=== PATIENT | male | born 1960 | race Caucasian/White ===

== ENCOUNTER 2021-09-05 10:37 | Day surgery (SDC) | payer OTHER ==
[~2021-09-05] VITALS: Ht 195.6 cm; Wt 150.9 kg
[2021-09-05] MEDS ORDERED: VICT18IN SC (11:04)
[2021-09-05] MEDS ORDERED: ATOR1TAB21 PO (11:04)
[2021-09-05] MEDS ORDERED: ADV250INH INH (11:04)
[2021-09-05] MEDS ORDERED: JARD1TAB3 PO (11:04)
[2021-09-05] MEDS ORDERED: ELIQ5TAB PO (11:04)
[2021-09-05] MEDS ORDERED: GLIM4TAB5 PO (11:04)
[2021-09-05] MEDS ORDERED: CARD60TA3 PO (11:04)
[2021-09-05] MEDS ORDERED: TRIA37.577 PO (11:04)
[2021-09-05] MEDS ORDERED: FLON1SPR NARES (11:04)
[2021-09-05] MEDS ORDERED: METF-839 PO (11:04)
[2021-09-05] MEDS ORDERED: FAMO40TA3 PO (11:04)
[2021-09-05] MEDS ORDERED: COLC0.6T47 PO (11:04)
[2021-09-05] MEDS ORDERED: MORPHINE 4 MG/ML 1ML VIAL/SYRINGE IV ONE (12:05)
[2021-09-05] MEDS ORDERED: NS 1,000 ML IV ONE (12:05)
[2021-09-05] MEDS ORDERED: ONDANSETRON 4MG 2ML VIAL IV ONE (12:05)
[2021-09-05 12:44] LABS: BASO % 0.4 % (0.0-1.0); EOS # 0.1 10^3/uL (0.0-0.5); EOS % 0.8 % (0.0-3.0); HEMATOCRIT 43.2 % (42.0-52.0); HEMOGLOBIN 14.6 g/dl (13.5-17.5); LYMPH # 1.2 10^3/uL (1.5-5.0); LYMPH % 12.3 % (24.0-44.0); MEAN CORPUSCULAR HGB CONC 33.8 g/dl (32.0-36.5); MEAN CORPUSCULAR VOLUME 88.9 fl (80.0-96.0); MONO # 1.3 10^3/uL (0.0-0.8); MONO % 12.8 % (2.0-8.0); NEUTROPHILS # 7.3 10^3/uL (1.5-8.5); NEUTROPHILS % 73.4 % (36.0-66.0); PLATELET COUNT, AUTOMATED 215 10^3/uL (150-450); RED BLOOD COUNT 4.86 10^6/uL (4.30-6.10); WHITE BLOOD COUNT 9.9 10^3/uL (4.0-10.0)
[2021-09-05] MEDS ORDERED: VITMTA PO (15:39)
[2021-09-05] MEDS ORDERED: ONDA4TAB6 SL (15:39)
[2021-09-05] MEDS ORDERED: FLOM0.4C39 PO (15:39)
[2021-09-05] MEDS ORDERED: DILT120T PO (15:39)
[2021-09-05] MEDS ORDERED: METF-838 PO (15:39)
[2021-09-05] MEDS ORDERED: OXYC-517 PO (15:39)
[2021-09-05] MEDS ORDERED: B-12100010 PO (15:39)
[2021-09-05] MEDS ORDERED: VITA100093 PO (15:39)
[2021-09-05] MEDS ORDERED: HOME MED LIST COMPLETE! XX SCH (15:40)
[2021-09-05] MEDS ORDERED: LIDOCAINE 2% INJ 100 MG/5 ML SYRINGE As Ordered ONE (15:47)
[2021-09-05] MEDS ORDERED: propofoL 200 MG/20 ML VIAL As Ordered ONE ×2 (15:47→16:50)
[2021-09-05] MEDS ORDERED: fentaNYL 100 MCG/2 ML INJECTION As Ordered ONE (15:47)
[2021-09-05] MEDS ORDERED: MIDAZOLAM INJ 2MG/2ML VIAL (J2250 PER 1MG) As Ordered ONE (15:47)
[2021-09-05] MEDS ORDERED: ONDANSETRON 4MG 2ML VIAL As Ordered ONE (15:47)
[2021-09-05] MEDS ORDERED: METOCLOPRAMIDE INJ 10MG/2ML VIAL (J2765 PER 1) As Ordered ONE (15:47)
[2021-09-05] MEDS ORDERED: ISOVUE-300 61% 50ML VIAL As Ordered ONE (15:54)
[2021-09-05 16:00] LABS: RSV AMPLIFICATION NEGATIVE (NEGATIVE)
[2021-09-05] MEDS ORDERED: SCOPOLAMINE 1MG TRANSDERMAL PATCH TOP ONE (16:30)
[2021-09-05] MEDS ORDERED: INSULIN LISPRO (NovoLOG) PER UNIT SC PRN (16:30)
[2021-09-05] MEDS ORDERED: ceFAZolin SOD 1 GM in D5W MINI-BAG PLUS 50 ML IV ONE (16:30)
[2021-09-05] MEDS ORDERED: ONDANSETRON 4MG 2ML VIAL IV PRN (16:30)
[2021-09-05] MEDS ORDERED: METOCLOPRAMIDE INJ 10MG/2ML VIAL (J2765 PER 1) IV PRN (16:30)
[2021-09-05] MEDS ORDERED: oxyCODONE 5MG TAB PO PRN (16:30)
[2021-09-05] MEDS ORDERED: fentaNYL 100 MCG/2 ML INJECTION IV PRN (16:30)
[2021-09-05] MEDS ORDERED: LR 1,000 ML IV SCH ×2 (16:30)
[2021-09-05] MEDS ORDERED: ceFAZolin SOD 2 GM in IV 1 EA IV ONE (16:30)
[2021-09-05] MEDS ORDERED: ceFAZolin 1GM VIAL (J0690 PER 500MG) As Ordered ONE (16:38)
[2021-09-05] MEDS ORDERED: ceFAZolin 2 GM/D5W 50 ML IV BAG (J0690 PER 500MG) As Ordered ONE (16:38)
[2021-09-05] MEDS ORDERED: ceFAZolin SOD 3 GM in IV 1 EA IV ONE (16:40)
[2021-09-05] MEDS ORDERED: ROCURONIUM BROMIDE 50 MG/5 ML VIAL As Ordered ONE (16:51)
[2021-09-05] MEDS ORDERED: PERCOCET 5MG/325MG TAB PO PRN (18:05)
[2021-09-05 19:00] VITALS: BP 142/67
[2021-09-12 12:09] LABS: CA Oxalate Dihy 30 % (.); Ca Ox Monohydrate 70 % (.); Size 4x4 mm (.)
== END 2021-09-05 18:36 | disposition home or self-care (01) ==
LOC: M ED 10:37 → M SDC 10:38 → M ED 15:09 → M SDC 18:36
PROVIDERS: ATTEND Urology
DX: N13.5 Crossing vessel and stricture of ureter without hydronephrosis (principal); I10 Essential (primary) hypertension; E11.9 Type 2 diabetes mellitus without complications; G47.33 Obstructive sleep apnea (adult) (pediatric); Z88.8 Allergy status to other drugs, medicaments and biological substances; Z79.84 Long term (current) use of oral hypoglycemic drugs; Z79.01 Long term (current) use of anticoagulants; I48.92 Unspecified atrial flutter; Z79.899 Other long term (current) drug therapy; E78.5 Hyperlipidemia, unspecified
CPT/HCPCS: 52332; 52352; 74176; 74420; 80047; 81001; 82365; 85025; 87631; 96374; 96375; 99284; C1769; C2617; J0690; J2250; J2270; J2405; J2765; J3010; Q9967

== ENCOUNTER 2021-10-17 11:03 | Inpatient (IN) | payer OTHER ==
[~2021-10-17] VITALS: Ht 195.6 cm; Wt 149.5 kg
[~2021-10-17 11:03] MED LIST: ADV250INH INH; ATOR1TAB21 PO; B-12100010 PO; CARD60TA3 PO; COLC0.6T47 PO; DILT120T PO; ELIQ5TAB PO; FAMO40TA3 PO; FLOM0.4C39 PO; FLON1SPR NARES; GLIM4TAB5 PO; JARD1TAB3 PO; METF-838 PO; METF-839 PO; ONDA4TAB6 SL; OXYC-517 PO; TRIA37.577 PO; VICT18IN SC; VITA100093 PO; VITMTA PO
[2021-10-17 12:35] LABS: BASO # 0.1 10^3/uL (0.0-0.2); BASO % 0.9 % (0.0-1.0); EOS # 0.1 10^3/uL (0.0-0.5); EOS % 2.1 % (0.0-3.0); HEMATOCRIT 41.7 % (42.0-52.0); HEMOGLOBIN 13.8 g/dl (13.5-17.5); LYMPH # 1.6 10^3/uL (1.5-5.0); LYMPH % 23.8 % (24.0-44.0); MEAN CORPUSCULAR HEMOGLOBIN 29.8 pg (27.0-33.0); MEAN CORPUSCULAR HGB CONC 33.1 g/dl (32.0-36.5); MEAN CORPUSCULAR VOLUME 90.1 fl (80.0-96.0); MONO # 0.7 10^3/uL (0.0-0.8); NEUTROPHILS # 4.2 10^3/uL (1.5-8.5); NEUTROPHILS % 61.8 % (36.0-66.0); PLATELET COUNT, AUTOMATED 286 10^3/uL (150-450); RED BLOOD COUNT 4.63 10^6/uL (4.30-6.10); WHITE BLOOD COUNT 6.7 10^3/uL (4.0-10.0)
[2021-10-17 12:54] LABS: INR 1.07; PARTIAL THROMBOPLASTIN TIME 34.8 SECONDS (25.9-37.0); PROTHROMBIN TIME 14.3 SECONDS (12.7-14.5)
[2021-10-17 13:00] LABS: ERYTHROCYTE SEDIMENTATION RATE 17 mm/hr (0-20)
[2021-10-17 13:14] LABS: MB/CK RELATIVE INDEX 1.7 (< OR =4)
[2021-10-17 13:22] LABS: ALBUMIN 3.5 GM/DL (3.2-5.2); ALT/SGPT 29 U/L (12-78); BILIRUBIN,DIRECT 0.1 MG/DL (0.0-0.2); BILIRUBIN,TOTAL 0.4 MG/DL (0.2-1.0); BLOOD UREA NITROGEN 20 MG/DL (7-18); CALCIUM LEVEL 9.6 MG/DL (8.8-10.2); CARBON DIOXIDE LEVEL 29 MEQ/L (21-32); CHLORIDE LEVEL 103 MEQ/L (98-107); CREATININE FOR GFR 0.93 MG/DL (0.70-1.30); GLOMERULAR FILTRATION RATE > 60.0 (>49); GLUCOSE, FASTING 132 MG/DL (70-100); LIPASE 107 U/L (73-393); MAGNESIUM LEVEL 2.1 MG/DL (1.8-2.4); NT-PRO BNP 320 PG/ML (<125); POTASSIUM SERUM 3.9 MEQ/L (3.5-5.1); SODIUM LEVEL 138 MEQ/L (136-145); THYROID STIMULATING HORMONE 0.807 uIU/ML (0.358-3.740); TOTAL PROTEIN 6.6 GM/DL (6.4-8.2)
[2021-10-17 14:13] LABS: CK-MB VALUE MASS 3.1 NG/ML (<3.6); MB/CK RELATIVE INDEX 1.74 (< OR =4)
[2021-10-17] MEDS ORDERED: DILT120C77 PO (18:41)
[2021-10-17] MEDS ORDERED: PROP225C13 PO (18:41)
[2021-10-17] MEDS ORDERED: DOCU100C16 PO (18:41)
[2021-10-17] MEDS ORDERED: DILT120C89 PO (18:41)
[2021-10-17] MEDS ORDERED: DILT1CAP46 PO (18:41)
[2021-10-17] MEDS ORDERED: HOME MED LIST COMPLETE! XX SCH (18:45)
[2021-10-17] MEDS ORDERED: MUPIROCIN 2% OINT 22 GM TUBE TOP ONE (19:15)
[2021-10-17] MEDS ORDERED: ceFAZolin SOD 2 GM in IV 1 EA IV ONE (19:15)
[2021-10-17] MEDS ORDERED: ACETAMINOPHEN TAB 650MG DOSE (2X325MG) PO PRN (19:15)
[2021-10-17] MEDS ORDERED: DOCUSATE SODIUM 100MG CAPSULE PO PRN (19:25)
[2021-10-17] MEDS ORDERED: ONDANSETRON 4MG ORAL DISINTEGRATING TAB SL PRN (19:25)
[2021-10-17] MEDS ORDERED: GLUCOSE 4GM CHEW TABLET PO PRN (19:30)
[2021-10-17] MEDS ORDERED: DEXTROSE 50% 50 ML SYRINGE IV PRN (19:30)
[2021-10-17] MEDS ORDERED: GLUCAGON INJ 1MG VIAL SC PRN (19:30)
[2021-10-17] MEDS ORDERED: KCL 20MEQ IN D5/NS 1000ML 1,000 ML IV SCH (20:00)
[2021-10-17] MEDS: INSULIN LISPRO (NovoLOG) PER UNIT SC SCH ×2 (21:00→22:43)
[2021-10-17] MEDS ORDERED: ATORVASTATIN 20 MG TAB PO SCH (21:00)
[2021-10-17] MEDS: APIXABAN 5 MG TAB (ELIQUIS) PO SCH (21:04)
[2021-10-17 22:33] VITALS: BP 140/82
[2021-10-18 00:05] VITALS: BP 130/68
[2021-10-18 03:28] VITALS: BP 122/69
[2021-10-18 05:54] LABS: HEMATOCRIT 42.8 % (42.0-52.0); MEAN CORPUSCULAR HEMOGLOBIN 29.6 pg (27.0-33.0); MEAN CORPUSCULAR HGB CONC 32.7 g/dl (32.0-36.5); MEAN CORPUSCULAR VOLUME 90.5 fl (80.0-96.0); PLATELET COUNT, AUTOMATED 287 10^3/uL (150-450); RED BLOOD COUNT 4.73 10^6/uL (4.30-6.10); WHITE BLOOD COUNT 6.8 10^3/uL (4.0-10.0)
[2021-10-18 06:24] LABS: BLOOD UREA NITROGEN 17 MG/DL (7-18); CALCIUM LEVEL 9.1 MG/DL (8.8-10.2); CARBON DIOXIDE LEVEL 28 MEQ/L (21-32); CHLORIDE LEVEL 105 MEQ/L (98-107); CREATININE FOR GFR 0.82 MG/DL (0.70-1.30); GLOMERULAR FILTRATION RATE > 60.0 (>49); GLUCOSE, FASTING 154 MG/DL (70-100); MAGNESIUM LEVEL 2.1 MG/DL (1.8-2.4); POTASSIUM SERUM 3.7 MEQ/L (3.5-5.1); SODIUM LEVEL 139 MEQ/L (136-145)
[2021-10-18 08:00] VITALS: BP 131/72
[2021-10-18] MEDS ORDERED: ADVAIR HFA 115/21MCG INHALER INH SCH (08:00)
[2021-10-18] MEDS: INSULIN LISPRO (NovoLOG) PER UNIT SC SCH ×2 (08:49→13:32)
[2021-10-18 08:50] VITALS: BP 131/72
[2021-10-18] MEDS: APIXABAN 5 MG TAB (ELIQUIS) PO SCH (08:50)
[2021-10-18] MEDS ORDERED: MULTIVITAMINS/MINERALS THERAP 1 TAB PO SCH (09:00)
[2021-10-18] MEDS ORDERED: TAMSULOSIN 0.4 MG CAP PO SCH (09:00)
[2021-10-18] MEDS ORDERED: FLUTICASONE PROP 0.05% NASAL SPRAY 16 GM (FLONASE) NARES SCH (09:00)
[2021-10-18] MEDS ORDERED: AMIODARONE 200 MG TAB (PACERONE) PO SCH (09:00)
[2021-10-18] MEDS ORDERED: DYAZIDE 37.5/25 CAP (TRIAM/HCTZ) PO SCH (09:00)
[2021-10-18] MEDS ORDERED: VITAMIN D 1,000 INTERNATIONAL UNITS TABLET PO SCH (09:00)
[2021-10-18] MEDS ORDERED: ALBUTEROL 90 MCG/ACT 8GM HFA INHALER INH PRN (10:30)
[2021-10-18 14:07] VITALS: BP 125/73
[2021-10-18] MEDS ORDERED: CARD120C3 PO (15:39)
[2021-10-18] MEDS ORDERED: AMIO200T49 PO (15:39)
== END 2021-10-18 16:40 | disposition home or self-care (01) | DRG 310 ==
LOC: M ED 11:03 → M ED INP 19:06 → ENRESERV 19:47 → M PCU 22:34
PROVIDERS: ADMIT Thoracic Surgery (Cardiothoracic Vascular Surgery); ATTEND Family Medicine
DX: I48.0 Paroxysmal atrial fibrillation (principal); E11.9 Type 2 diabetes mellitus without complications; I48.92 Unspecified atrial flutter; I10 Essential (primary) hypertension; I44.7 Left bundle-branch block, unspecified; G47.33 Obstructive sleep apnea (adult) (pediatric); I83.93 Asymptomatic varicose veins of bilateral lower extremities; N40.0 Benign prostatic hyperplasia without lower urinary tract symptoms; E78.5 Hyperlipidemia, unspecified; J45.909 Unspecified asthma, uncomplicated; Z79.01 Long term (current) use of anticoagulants; Z79.84 Long term (current) use of oral hypoglycemic drugs; Z87.442 Personal history of urinary calculi; Z79.899 Other long term (current) drug therapy; Z89.021 Acquired absence of right finger(s)

== ENCOUNTER → 2022-07-09 | Outpatient (CLI) | payer OTHER ==
[~2022-07-09] MED LIST changes: +AMIO200T49 PO; +CARD120C3 PO; +DILT120C77 PO; +DILT120C89 PO; +DILT1CAP46 PO; +DOCU100C16 PO; +PROP225C13 PO
== END ==
LOC: M PLAIMG 14:20
PROVIDERS: ATTEND Urology
DX: N20.0 Calculus of kidney (principal)

== ENCOUNTER → 2023-10-11 | Outpatient (CLI) | payer OTHER ==
[~2023-10-11] MED LIST changes: -DILT1CAP46 PO; +DILT360C22 PO; +ONDA-282 SL; -ONDA4TAB6 SL
== END ==
LOC: M PLAIMG 11:41
PROVIDERS: ATTEND Urology
DX: N20.0 Calculus of kidney (principal)

== ENCOUNTER → 2024-10-18 | Outpatient (CLI) | payer MEDICARE, OTHER ==
[~2024-10-18] MED LIST changes: -ADV250INH INH; +ADVA1AER9 INH; -AMIO200T49 PO; +AMIO200T54 PO; -FLOM0.4C39 PO; +TAMS-18 PO
== END ==
LOC: M PLAIMG 09:17
PROVIDERS: ATTEND Urology
DX: N20.0 Calculus of kidney (principal); K59.00 Constipation, unspecified